=== PATIENT | male | born 1965 | race Two or more races ===

== ENCOUNTER 2016-12-22 18:57 | Emergency (ER) | payer OTHER ==
--- NOTE | 2016-12-22 19:08 | EDPHY ---
H & P Stated Complaint: ate a salad at work had n/v/d abd pain post eating Time Seen by Provider: 12/22/16 19:08 HPI/ROS: CHIEF COMPLAINT: Abdominal pain, vomiting, diarrhea HISTORY OF PRESENT ILLNESS: The patient presents to the ED with complaints of acute abdominal pain and associated vomiting and diarrhea. Symptoms began several hours ago after eating a salad at work. The patient had no symptoms of pain, fever or discomfort this morning when he woke up. The patient reports a remote history of the symptoms in 2004. He denies any history of abdominal surgery. The patient takes no medications. The patient denies any alcohol use. The patient currently states his symptoms are moderate in nature. He denies any associated respiratory symptoms, headache or neurologic symptoms. REVIEW OF SYSTEMS: A comprehensive 10 point review of systems is otherwise negative aside from elements mentioned in the history of present illness. Source: Patient Exam Limitations: No limitations - Personal History Current Tetanus/Diphtheria Vaccine: Yes - Medical/Surgical History Hx Asthma: No Hx Chronic Respiratory Disease: No Hx Diabetes: No Hx Cardiac Disease: No Hx Renal Disease: No Hx Cirrhosis: No Hx Alcoholism: No Hx HIV/AIDS: No Hx Splenectomy or Spleen Trauma: No Other PMH: denies - Social History Smoking Status: Never smoked - Physical Exam Exam: General Appearance: Alert, no distress Eyes: Pupils equal and round no pallor or injection ENT, Mouth: Mucous membranes moist Respiratory: There are no retractions, lungs are clear to auscultation Cardiovascular: Regular rate and rhythm Gastrointestinal: Minimal tenderness to palpation primarily in the left mid and lower quadrant Neurological: Alert and oriented x4, 5/5 motor strength noted all 4 extremities Skin: Warm and dry, no rashes Extremities: symmetrical, full range of motion Psychiatric: Cooperative, normal speech, non agitated Constitutional: Initial Vital Signs Temperature (C) 37 C 12/22/16 19:00 Heart Rate 69 12/22/16 19:00 Respiratory Rate 17 12/22/16 19:00 Blood Pressure 136/81 H 12/22/16 19:00 O2 Sat (%) 97 12/22/16 19:00 O2 Delivery Mode Room Air Allergies/Adverse Reactions: No Known Allergies Allergy (Unverified 12/22/16 19:00) Home Medications: Medication Instructions Recorded Ondansetron Odt [Zofran Odt] 4 mg PO Q4PRN PRN #20 tab 12/22/16 Medical Decision Making - Diagnostics Imaging Results: Imaging Impressions Abdomen CT 12/22/16 20:18 Impression: 1. No significant abnormality seen within the abdomen and pelvis. 2. No CT evidence of appendicitis, abscess or bowel obstruction. Findings discussed with Gonsalo Marcus M.D. at 20:50 hour, 12/22/2016. ED Course/Re-evaluation: The patient presents to the ED with acute abdominal pain, vomiting and diarrhea after eating a salad at work today. The patient complained of left-sided abdominal pain. He had minimal left lower quadrant tenderness on exam. The patient was taken for a CT scan of the abdomen pelvis to evaluate for possible diverticulitis. The results of this study demonstrate no evidence of obvious intra-abdominal disease. The patient received a L of normal saline. He received IV Zofran. He received 30 mg of IV Toradol. The patient's laboratory studies are reassuring. He is noted to have a mild leukocytosis. He has no serological evidence of pancreatitis or hepatitis. The patient's urinalysis demonstrates no pyuria or hematuria. At this point time, the patient appears to have acute gastroenteritis with symptoms of pain, vomiting and diarrhea. There is nothing to suggest an acute surgical process on his CT scan and examination at this time. I re-evaluated the patient at 9:15 p.m. and reviewed the results of his lab studies, CT scan and urinalysis. The patient is feeling much better. The patient currently does not have insurance and has not seen a primary care provider. He has been given the contact number for [facility]. He is discharged home with customary aftercare and return precautions. Differential Diagnosis: Differential diagnosis considered includes diverticulitis, pancreatitis, cholecystitis, appendicitis, nephrolithiasis, ureterolithiasis, pyelonephritis, gastroenteritis - Data Points Laboratory Results: Laboratory Results 12/22/16 19:37 12/22/16 19:37 12/22/16 12/22/16 12/22/16 20:09 19:37 19:37 WBC 11.75 10^3/uL H 10^3/uL (3.80-9.50) RBC 4.94 10^6/uL 10^6/uL (4.40-6.38) Hgb 14.0 g/dL g/dL (13.7-17.5) Hct 42.7 % % (40.0-51.0) MCV 86.4 fL fL (81.5-99.8) MCH 28.3 pg pg (27.9-34.1) MCHC 32.8 g/dL g/dL (32.4-36.7) RDW 13.7 % % (11.5-15.2) Plt Count 199 10^3/uL 10^3/uL (150-400) MPV 10.3 fL fL (8.7-11.7) Neut % (Auto) 78.2 % H % (39.3-74.2) Lymph % (Auto) 12.4 % L % (15.0-45.0) Esmeralda % (Auto) 7.1 % % (4.5-13.0) Eos % (Auto) 1.5 % % (0.6-7.6) Baso % (Auto) 0.3 % % (0.3-1.7) Nucleat RBC Rel Count 0.0 % % (0.0-0.2) Absolute Neuts (auto) 9.18 10^3/uL H 10^3/uL (1.70-6.50) Absolute Lymphs (auto) 1.46 10^3/uL 10^3/uL (1.00-3.00) Absolute Monos (auto) 0.83 10^3/uL H 10^3/uL (0.30-0.80) Absolute Eos (auto) 0.18 10^3/uL 10^3/uL (0.03-0.40) Absolute Basos (auto) 0.04 10^3/uL 10^3/uL (0.02-0.10) Absolute Nucleated RBC 0.00 10^3/uL 10^3/uL (0-0.01) Immature Gran % 0.5 % % (0.0-1.1) Immature Gran # 0.06 10^3/uL 10^3/uL (0.00-0.10) Sodium 134 mEq/L mEq/L (134-144) Potassium 4.3 mEq/L mEq/L (3.5-5.2) Chloride 99 mEq/L mEq/L (97-110) Carbon Dioxide 25 mEq/l mEq/l (22-31) Anion Gap 10 mEq/L mEq/L (8-16) BUN 10 mg/dL mg/dL (7-23) Creatinine 0.8 mg/dL mg/dL (0.7-1.3) Estimated GFR > 60 Glucose 112 mg/dL H mg/dL (70-100) Calcium 9.4 mg/dL mg/dL (8.5-10.4) Total Bilirubin 0.4 mg/dL mg/dL (0.1-1.4) Conjugated Bilirubin 0.1 mg/dL mg/dL (0.0-0.5) Unconjugated Bilirubin 0.3 mg/dL mg/dL (0.0-1.1) AST 19 IU/L IU/L (17-59) ALT 35 IU/L IU/L (21-72) Alkaline Phosphatase 80 IU/L IU/L (38-126) Total Protein 7.4 g/dL g/dL (6.3-8.2) Albumin 4.0 g/dL g/dL (3.5-5.0) Lipase 60 IU/L IU/L (23-300) Urine Color YELLOW Urine Appearance CLEAR Urine pH 6.0 (5.0-7.5) Ur Specific [place] 1.014 (1.002-1.030) Urine Protein NEGATIVE (NEGATIVE) Urine Ketones NEGATIVE (NEGATIVE) Urine Blood NEGATIVE (NEGATIVE) Urine Nitrate NEGATIVE (NEGATIVE) Urine Bilirubin NEGATIVE (NEGATIVE) Urine Urobilinogen NEGATIVE EU EU (0.2-1.0) Ur Leukocyte Esterase NEGATIVE (NEGATIVE) Urine Glucose NEGATIVE (NEGATIVE) Medications Given: Discontinued Medications Sodium Chloride (Ns) 1,000 mls @ 0 mls/hr IV EDNOW ONE; Wide Open PRN Reason: Protocol Stop: 12/22/16 19:22 Last Admin: 12/22/16 19:42 Dose: 1,000 mls Ketorolac Tromethamine (Toradol) 30 mg IVP EDNOW ONE Stop: 12/22/16 20:56 Last Admin: 12/22/16 21:07 Dose: 30 mg Ondansetron HCl (Zofran) 4 mg IVP EDNOW ONE Stop: 12/22/16 19:22 Last Admin: 12/22/16 19:43 Dose: 4 mg Departure - Departure Disposition: Home, Routine, Self-Care Clinical Impression: Gastroenteritis Abdominal pain Qualifiers: Abdominal location: left lower quadrant Qualified Code(s): R10.32 - Left lower quadrant pain Condition: Good Instructions: Gastroenteritis (ED), Acute Nausea and Vomiting (ED), Ondansetron (By mouth) Additional Instructions: 1. Take Zofran as needed for nausea. 2. Take Ibuprofen or Motrin 600 mg by mouth three times a day. 3. Sometimes we are unable to diagnose an obvious cause of abdominal pain in the Emergency Department. Based upon our evaluation today, we see no obvious explanation for your pain. Because more serious conditions can be difficult to diagnose early in the course of their presentation, we ask that you return to the Emergency Department in 8-12 hours for a recheck if you are still having pain. This is necessary to exclude the development of a more serious condition such as appendicitis or other intra-abdominal emergency. In the event your pain markedly increases before that time or you develop intractable vomiting or fever return to the Emergency Department immediately. 4. You have been given the contact number for [facility]. I do recommend calling them to establish a visit with a primary care provider. Referrals: NONE *PRIMARY CARE P,. [Primary Care Provider] - As per Instructions [facility],. [Clinic] - As per Instructions Prescriptions: Ondansetron Odt [Zofran Odt] 4 mg PO Q4PRN PRN #20 tab PRN Reason: For Nausea
[2016-12-22] MEDS: NS 1,000 ML IV ONE (19:42)
[2016-12-22] MEDS: ONDANSETRON 4 MG/2 ML VIAL IVP ONE (19:43)
[2016-12-22 19:50] LABS: % IMMATURE GRANULYOCYTES 0.5 % (0.0-1.1); ABSOLUTE IMMATURE GRANULOCYTES 0.06 10^3/uL (0.00-0.10); ADD DIFF? NO; ADD MORPH? NO; ADD SCAN? NO; ATYPICAL LYMPHOCYTE FLAG 0 (0-99); FRAGMENT RBC FLAG 0 (0-99); HEMATOCRIT 42.7 % (40.0-51.0); LEFT SHIFT FLG 0 (0-99); LIPEMIA HEMOLYSIS FLAG 80 (0-99); MEAN CELL HEMOGLOBIN 28.3 pg (27.9-34.1); MEAN CELL HEMOGLOBIN CONCENTR. 32.8 g/dL (32.4-36.7); MEAN CELL VOLUME 86.4 fL (81.5-99.8); MEAN PLATELET VOLUME 10.3 fL (8.7-11.7); PLATELET CLUMPS FLAG 40 (0-99); PLATELET COUNT 199 10^3/uL (150-400); RED BLOOD CELL COUNT 4.94 10^6/uL (4.40-6.38); RED CELL DISTRIBUTION WIDTH 13.7 % (11.5-15.2)
[2016-12-22 20:03] LABS: ALANINE AMINOTRANSFERASE 35 IU/L (21-72); ALKALINE PHOSPHATASE 80 IU/L (38-126); ANION GAP 10 mEq/L (8-16); ASPARTATE AMINOTRANSFERASE 19 IU/L (17-59); BILIRUBIN,TOTAL 0.4 mg/dL (0.1-1.4); BILIRUBIN-CONJUGATED 0.1 mg/dL (0.0-0.5); BILIRUBIN-UNCONJUGATED 0.3 mg/dL (0.0-1.1); CALCIUM 9.4 mg/dL (8.5-10.4); CARBON DIOXIDE 25 mEq/l (22-31); CHLORIDE 99 mEq/L (97-110); CREATININE 0.8 mg/dL (0.7-1.3); GLOMERULAR FILTRATION RATE > 60; GLUCOSE 112 mg/dL (70-100); POTASSIUM 4.3 mEq/L (3.5-5.2); SODIUM 134 mEq/L (134-144); TOTAL PROTEIN 7.4 g/dL (6.3-8.2)
[2016-12-22] MEDS ORDERED: IOPAMIDOL (ISOVUE-300) 100 ML BTL ONE (20:32)
[2016-12-22 20:33] LABS: COLOR YELLOW; LEUKOCYTE ESTERASE,URINE NEGATIVE (NEGATIVE); NITRITE,URINE NEGATIVE (NEGATIVE)
[2016-12-22] MEDS: KETOROLAC 30 MG/1 ML SDV IVP ONE (21:07)
[2016-12-22] MEDS: ONDANSETRON 4MG PREPACK#2 BTL TAKEHOME ONE (21:39)
[2016-12-22 21:42] VITALS: BP 131/90; PULSE 81; RESP 14; TEMP 98.1; O2SAT 98
== END 2016-12-22 21:41 | disposition home or self-care (01) ==
DX: K52.9 Noninfective gastroenteritis and colitis, unspecified (principal); E86.9 Volume depletion, unspecified
CPT/HCPCS: 96374; J1885; J2405; Q9967